=== PATIENT | male | born 1990 | race Caucasian/White ===

== ENCOUNTER 2025-04-15 23:38 | Emergency (ER) | payer MEDICAID ==
[~2025-04-15] VITALS: Ht 175.3 cm; Wt 65.0 kg
[2025-04-15 23:44] VITALS: TEMP 36.5; O2SAT 99
[2025-04-16] MEDS: KETOROLAC 30MG/ML VIAL IM ONE (00:30)
[2025-04-16] MEDS: HYDROXYZINE 25MG TABLET PO ONE (00:30)
[2025-04-16 00:32] LABS: BASOPHILS % 0.6 % (0.0-2.0); EOSINOPHILS % 1.7 % (0.0-5.0); HEMATOCRIT. 42.4 % (42.0-52.0); HEMOGLOBIN. 14.3 g/dL (14.0-18.0); LYMPHOCYTES % 20.1 % (20.0-50.0); MEAN PLATELET VOLUME 7.6 fl (7.4-10.4); MONOCYTES % 8.7 % (2.0-8.0); NEUTROPHILS % 68.9 % (40.0-76.0); PLATELET 243 x1000/uL (130-400); RED BLOOD CELL COUNT 4.70 mill/uL (4.7-6.1); RED CELL DISTRIBUTION WIDTH 12.1 % (11.6-14.6)
[2025-04-16 01:00] LABS: CREATININE 0.8 mg/dL (0.6-1.3)
[2025-04-16 01:01] LABS: TROPONIN I HIGH SENSITIVITY < 4 ng/L (3.0-53); UREA NITROGEN BLOOD 6 mg/dL (9-23)
[2025-04-16 01:43] LABS: TROPONIN I HIGH SENSITIVITY < 4 ng/L (3.0-53)
[2025-04-16 03:05] LABS: TROPONIN I HIGH SENSITIVITY < 4 ng/L (3.0-53)
[2025-04-16 03:27] VITALS: BP 129/63; PULSE 74; RESP 20; O2SAT 100
== END 2025-04-16 03:28 | disposition home or self-care (01) ==
LOC: ER 23:38
DX: R07.89 Other chest pain (principal)
CPT/HCPCS: 99285; 71045; 36415 ×2; 93005; 80048; 85025; 84484; 96372; J1885